=== PATIENT | male | born 1955 | race Caucasian/White ===

== ENCOUNTER 2024-08-07 06:22 | Day surgery (SDC) | payer OTHER, SELFPAY ==
[2024-07-26 11:30] LABS: Hematocrit 50.1 % (39.0-52.0); Hemoglobin 16.9 g/dL (13.0-18.0); Mean Corp Hgb Conc. 33.7 g/dL (33.0-37.0); Mean Corpuscular Hgb 33.1 pg (27.0-31.0); Mean Platelet Volume 9.9 fL (7.4-10.4); Platelet Count 236 10^3/uL (130-400); Red Blood Cell Count 5.11 10^6/uL (4.70-6.10); Red Cell Dist. Width 12.3 % (11.5-14.5); White Blood Cell Count 6.4 10^3/uL (4.8-10.8)
[2024-07-26 12:03] LABS: Blood Urea Nitrogen 12 mg/dl (9-20); Calcium 9.5 mg/dl (8.4-10.2); Carbon Dioxide 27 mmol/L (22-30); Chloride 102 mmol/L (98-107); Glucose 122 mg/dl (70-99); Potassium 4.2 mmol/L (3.5-5.1); Sodium 139 mmol/L (135-145); eGFR > 60.00
[2024-07-26 14:05] VITALS: BMI 29.0
[2024-08-07] VITALS (11 sets, daily range): BP systolic 115–149; BP diastolic 58–81; BMI 29.0
[2024-08-07] MEDS: CYSVIEW KIT 100 MG INTRAVES (12:05)
[2024-08-07] MEDS: NORMOSOL-R/PLASMALYTE-A 1000 IV (12:06)
[2024-08-07] MEDS: SYRINGE NON-PUMP 50 ML IRRIG ×2 (14:19→14:20)
[2024-08-07] MEDS: SYRINGE NON-PUMP 50 MG IRRIG ×2 (14:19→14:20)
[2024-08-07] MEDS: Pyridium 200 MG PO (14:29)
[2024-08-07] MEDS: DETROL LA 4 MG PO (14:29)
== END 2024-08-07 16:22 | disposition home or self-care (01) ==
LOC: SDS 06:22
PROVIDERS: ATTENDING PHYSICIAN Surgery; FAMILY PHYSICIAN Family Medicine
DX: C67.0 Malignant neoplasm of trigone of bladder (principal)
CPT/HCPCS: 51720; C9738; 88307; 80048; 85027; 93005; A9589

== ENCOUNTER 2024-12-08 08:22 | Day surgery (SDC) | payer OTHER, SELFPAY ==
[2024-11-21 08:53] VITALS: BMI 25.5
[2024-11-21 09:27] LABS: Hematocrit 45.7 % (39.0-52.0); Hemoglobin 15.5 g/dL (13.0-18.0); Mean Corp Hgb Conc. 33.9 g/dL (33.0-37.0); Mean Corpuscular Volume 96.0 fL (80.0-94.0); Nucleated Red Blood Cells % 0 % (-); Platelet Count 260 10^3/uL (130-400); Red Cell Dist. Width 12.6 % (11.5-14.5)
[2024-11-21 09:36] LABS: INR 1.22; PT 15.7 Sec (11.4-14.6)
[2024-11-21 09:39] LABS: ALT (SGPT) 19 U/L (0-50); AST (SGOT) 19 U/L (17-59); Albumin 3.9 g/dl (3.5-5.0); Alkaline Phosphatase 77 U/L (38-126); Blood Urea Nitrogen 15 mg/dl (9-20); Calcium 9.3 mg/dl (8.4-10.2); Carbon Dioxide 29 mmol/L (22-30); Chloride 105 mmol/L (98-107); Estimated Creatinine Clearance 107 ml/min; Glucose 117 mg/dl (70-99); Magnesium 2.1 mg/dl (1.6-2.3); Potassium 4.0 mmol/L (3.5-5.1); Sodium 139 mmol/L (135-145); Total Protein 7.0 g/dl (6.3-8.2); eGFR > 60.00
[2024-12-08] VITALS (10 sets, daily range): BP systolic 97–126; BP diastolic 54–66; BMI 24.8
--- NOTE | 2024-12-08 11:52 | ITS.CL.ABL ---
Management Technician - Ablation
Ablation
Procedure Report:
Primary Asbestos Siding Mechanic: Dr Jeronimo Gómez
Procedure Date: 12/08/2024
Patient History:
Patient is a pleasant 69-year-old male with past medical history significant for hypertension, OA, hyperlipidemia, symptomatic paroxysmal atrial fibrillation and symptomatic paroxysmal typical atrial flutter.
See H&P for complete details.
Indication:
Symptomatic paroxysmal atrial fibrillation
Symptomatic paroxysmal atrial flutter
Recurrence despite antiarrhythmic medical therapy
Arrhythmia Specific History:
Prior Medical Therapies for Rate and Rhythm Control:
X Beta-robert
[ ] Calcium channel-robert
[ ] Amiodarone
[ ] Dronederone
[ ] Sotalol
X Flecainide
[ ] Dofetilide
X Options limited by bradycardia
[ ] Options limited by comorbid renal disease
Prior Procedural Therapies for AF/AFL:
X Cardioversion
[ ] Pulmonary Vein Isolation
[ ] Posterior Wall Isolation
[ ] Additional lines (Specify)
[ ] Surgical Aguilar-MAZE or PVI (Specify)
Procedure Performed:
X AF ablation procedure (11650) -- includes LA/CS pacing, trans-septal, 3D mapping, + ICE
[ ] +IV drug (81541)
X +Other Arrhythmia (75801) - CTI atrial flutter ablation
[ ] +Other AF Line/ablation (24314)
Risks and expected recovery has been explained in detail. Alternative options have been explored, and in a shared-decision making fashion we have decided that this was the most appropriate procedure.
Method
NPO status confirmed. Grounding pad applied. Defibrillator pads applied. Continuous surface ECG, pulse oximetry, and blood pressure were monitored. Procedure was performed under general anesthesia, with anesthesia services.
Both groins were clipped, prepped with Chloraprep, and draped in sterile fashion. Time out was called. Local anesthesia administered with bupivacaine. The right femoral vein was accessed for catheter placement, using ultrasound guidance (images
saved to record), micro-puncture needle/wire, and modified seldinger technique. 3 sheaths were placed. The following catheters were used:
[ ] Tacticath SE (D/F Curve) ablation catheter
X Viewflex 9Fr ICE catheter
X Inquiry decapolar 6Fr diagnostic catheter
[ ] CRD Hex 6Fr
X Agilis 11.5 Fr Steerable Sheath
X Sphere-9 Ablation catheter
[ ] Advisor HD Grid Mapping Catheter, SE
[ ] Acuson AcuNav 8 Fr ICE catheter
[ ] Other: [ ]
A multipolar catheter were advanced to the coronary sinus. Intracardiac ultrasound (ICE) was carefully advanced into the right atrium to guide sheath placement over a J-wire, catheter placement, guide trans-septal puncture, identify potential
complications, identify anatomic structures and ensure proper contact between ablation catheter and tissue.
Heparin was given to achieve and maintain a target ACT of 300-400 seconds throughout the procedure.
The Sphere-9 mapping/ablation catheter (through long steerable sheath was used to map, record, pace, and ablate.) Three-dimensional electroanatomic mapping was utilized with careful attention to anatomic landmarks, including the coronary sinus,
IVC-RA and SVC-RA junction, tricuspid valve annulus, and region of the His bundle electrogram. Clockwise and counterclockwise trans-isthmus times were determined. An ablation line was created from the tricuspid annulus to the IVC in the 6:00
position (UGANDAN clock/caudal EAM projection). A combination of RF and PF was used with careful monitoring of impedance, AV conduction, power, and temperature. Ablation continued until a line was complete from the tricuspid valve annulus to the IVC-RA
junction during CS pacing. Clockwise and counterclockwise trans-isthmus times were determined, and RA activation patterns confirmed bidirectional block.
Next, we turned our attention to the AF Ablation.
Trans-septal access was performed under ICE guidance. The trans-septal puncture was performed with a SafeSept wire through a Brockenbrough needle assembly through the steerable sheath. The wire was visualized as it entered the LSPV and system
advanced under ICE guidance and fluoroscopy into the LA. The Brockenbrough needle assembly, SafeSept wire and sheath dilator were removed under negative pressure. LA pressure was measured and recorded.
ICE and 3D mapping was performed to identify relevant cardiac structures. A careful 3D map was created to assess for regions of low-voltage and abnormal electrogram signals using Sphere-9 catheter. Additional mapping was performed as outlined below.
Prior to ablation, glycopyrrolate was provided. Sphere 9 catheter was advanced into the left atrium. Electroanatomic mapping was performed using the Sphere 9 catheter. Pulmonary vein isolation was performed using pulsed field ablation in a
circumferential manner. Contact was visualized via EAM, ICE, fluoroscopy, and EGM signals.
Following completion of ablation lesions, a post-ablation voltage/activation map was performed in sinus rhythm. Entrance and exit block were confirmed for each vein.
Catheter and sheath were removed from the left atrium and post-ablation intracardiac echo evaluation was consistent with pre-ablation with no changes and no pericardial effusion and there is no left atrial thrombus or left ventricle thrombus seen.
Electrophysiology study was performed. No additional arrhythmias were induced. No atrial flutter induced. Hemostasis was obtained with Vascade for each sheath and with manual pressure. Protamine was used for reversal.
Estimated Blood Loss
5 mL
Complications
None
Fluoroscopy: 4.5 minutes; 12.67 mGy; DAP 1.46
LA Pressure: Pre 28 mmHg, post 14 mmHg
Baseline Intervals:
Rhythm: SB
PA: 164 ms
QRS: 115 ms
QT: 438 ms
QTc: 475 ms
A-A: 850 ms
R-R: 850 ms
Post-Procedure Intervals:
PA: 170 ms
QRS: 101 ms
QT: 402 ms
QTc: 410 ms
AVWB: 360 ms
AERP: 600/250 ms
Recommendations
- Bedrest with straight-leg precautions as ordered
- Anticipate same day discharge if patient meeting clinical metrics
- Resume home medications as indicated
- Ok to resume anticoagulation tonight if patient and groin sites stable
- PPI daily for 30 days
- Plan for follow-up in office as scheduled
� Reduce metoprolol succinate to 50 mg daily
� Plan to discontinue flecainide at the 3-month office visit with primary developmental mathematics instructor
Jose Guadalupe Ball DO, FACC, RS
Clinical Cardiac Configurator
cc: Dr Jeronimo Gómez; Dr Mannie Morton
[2024-12-08 12:50] LABS: ACT-LR - POC 281 Seconds (116-155)
[2024-12-08 13:15] LABS: ACT-LR - POC 255 Seconds (116-155)
[2024-12-08 13:47] LABS: ACT-LR - POC 372 Seconds (116-155)
[2024-12-08 14:22] LABS: ACT-LR - POC 343 Seconds (116-155)
[2024-12-08 14:30] LABS: ACT-LR - POC 152 Seconds (116-155)
[2024-12-08] MEDS: PROTONIX 40 MG PO (15:46)
--- NOTE | 2024-12-08 16:46 | W.PN.UPDATE ---
Update Note
Progress Note Update
Pt seen post PFA/AFlutter ablation. Right groin with vascade closure, no ht/bleeding, oob ambulating, urinating without difficulty. Post EKG SB/SR 50-60s, no acute changes. Resume eliquis tonight and continue flecainide as before. Decrease
metoprolol to 25mg twice a day. Followup with Dr. Gómez in 2-3 months as scheduled. Home today if groin site/tele remain stable.
[2024-12-11 08:27] LABS: ACT-LR - POC > 397 Seconds (116-155)
[2024-12-11 08:27] LABS: ACT-LR - POC > 397 Seconds (116-155)
== END 2024-12-08 17:21 | disposition home or self-care (01) ==
LOC: CATH 08:22
PROVIDERS: ATTENDING PHYSICIAN Internal Medicine Cardiovascular Disease; FAMILY PHYSICIAN Family Medicine; OTHER PHYSICIAN Internal Medicine Clinical Cardiac Electrophysiology
DX: I48.0 Paroxysmal atrial fibrillation (principal); E78.5 Hyperlipidemia, unspecified; I10 Essential (primary) hypertension; I48.92 Unspecified atrial flutter; E78.2 Mixed hyperlipidemia; F41.1 Generalized anxiety disorder; Z79.01 Long term (current) use of anticoagulants
CPT/HCPCS: C1894; C1730; C1766; C1733; 36415; 75572; 80053; 83735; 85025; 85347; 85610; 86850; 86900; 86901; 93005; 93655; 93656; C1760; Q9967

== ENCOUNTER → 2024-12-13 11:08 | Outpatient (REF) | payer OTHER, SELFPAY | LOC: DHSLP 11:08 | PROVIDERS: ATTENDING PHYSICIAN Internal Medicine Cardiovascular Disease; FAMILY PHYSICIAN Family Medicine | DX: G47.30 Sleep apnea, unspecified (principal); R06.83 Snoring | CPT/HCPCS: 95800 ==